=== PATIENT | male | born 1935 | race Caucasian/White ===

== ENCOUNTER 2020-05-28 09:46 | Emergency (ER) | payer MEDICARE ==
[~2020-05-28] VITALS: Ht 170.2 cm; Wt 90.3 kg
[~2020-05-28 09:46] MED LIST: AMLODIPINE BESY10 MG PO; ASPIR-LOW81 MG PO; CARVEDILOL3.125 MG PO; CLONIDINE HCL0.2 MG PO; CLOPIDOGREL75 MG PO; COREG3.125 MG PO; ELIQUIS5 M1 PO; ELIQUIS5 MG PO; ESOMEPRAZOLE MA40 MG PO; FERROUS GLUCON324 M1 PO; FUROSEMIDE40 MG PO; FUROSEMIDE80 MG PO; GLIPIZIDE5 MG PO; HUMIBID LA TAB600 MG PO; IMDUR ER TAB 6060 MG PO; IPRAT-ALBUT 0.5-3 ML INH; LEVAQUIN500 MG PO; MEDROL DOSEPAK 24 MG PO; MIRAPEX0.25 MG PO; NITROSTAT0.4 MG PO; SERTRALINE HCL100 MG PO; ZESTRIL20 MG PO
[2020-05-28 10:50] LABS: HEMOGLOBIN 9.3 gm/dl (14.0-17.5); RED BLOOD COUNT 3.28 M/UL (4.20-5.50); WHITE BLOOD COUNT 13.3 K/UL (4.5-11.0)
[2020-10-03] MEDS ORDERED: OXYCODON-ACETA1 EAC1 PO (13:55)
== END 2020-05-28 13:01 | disposition short-term general hospital (02) ==
LOC: ER1 09:46
PROVIDERS: Physician Assistant
DX: I60.9 Nontraumatic subarachnoid hemorrhage, unspecified (principal); I62.00 Nontraumatic subdural hemorrhage, unspecified; I13.0 Hypertensive heart and chronic kidney disease with heart failure and stage 1 through stage 4 chronic kidney disease, or unspecified chronic kidney disease; E11.22 Type 2 diabetes mellitus with diabetic chronic kidney disease; N18.9 Chronic kidney disease, unspecified; I50.9 Heart failure, unspecified; D64.9 Anemia, unspecified; Z88.0 Allergy status to penicillin; W19.XXXA Unspecified fall, initial encounter; Z91.81 History of falling; Z20.822 Contact with and (suspected) exposure to COVID-19
CPT/HCPCS: 36430; 70450; 71045; 80053; 82550; 82553; 83874; 83880; 84484; 85025; 85610; 85730; 86900; 86901; 87635; 93005; 96374; 96376; 99284; C9132; P9035

== ENCOUNTER 2020-10-01 21:05 | Emergency (ER) | payer MEDICARE ==
[2020-10-01 22:03] LABS: HEMOGLOBIN 11.7 gm/dl (14.0-17.5); RED BLOOD COUNT 4.36 M/UL (4.20-5.50); WHITE BLOOD COUNT 20.3 K/UL (4.5-11.0)
[2020-10-02] MEDS ORDERED: ENDOCET 5-3251 EACH PO (04:15)
[2020-10-03] MEDS ORDERED: OXYCODON-ACETA1 EAC1 PO (13:55)
== END 2020-10-02 04:27 | disposition home or self-care (01) ==
LOC: ER1 21:05
PROVIDERS: Physician Assistant
DX: S22.32XA Fracture of one rib, left side, initial encounter for closed fracture (principal); D72.829 Elevated white blood cell count, unspecified; E11.65 Type 2 diabetes mellitus with hyperglycemia; E78.5 Hyperlipidemia, unspecified; I13.0 Hypertensive heart and chronic kidney disease with heart failure and stage 1 through stage 4 chronic kidney disease, or unspecified chronic kidney disease; I50.9 Heart failure, unspecified; N18.4 Chronic kidney disease, stage 4 (severe); I25.2 Old myocardial infarction; I25.10 Atherosclerotic heart disease of native coronary artery without angina pectoris; E11.22 Type 2 diabetes mellitus with diabetic chronic kidney disease; Z85.46 Personal history of malignant neoplasm of prostate; Z88.0 Allergy status to penicillin; F17.210 Nicotine dependence, cigarettes, uncomplicated; W18.30XA Fall on same level, unspecified, initial encounter
CPT/HCPCS: 71045; 80053; 82550; 82553; 83874; 83880; 84484; 85025; 85610; 85730; 99283

== ENCOUNTER 2020-10-07 10:32 | Emergency (ER) | payer MEDICARE ==
[~2020-10-07 10:32] MED LIST changes: +ENDOCET 5-3251 EACH PO; +OXYCODON-ACETA1 EAC1 PO
[2020-10-07 13:32] LABS: HEMOGLOBIN 10.4 gm/dl (14.0-17.5); RED BLOOD COUNT 3.9 M/UL (4.20-5.50); WHITE BLOOD COUNT 15.4 K/UL (4.5-11.0)
== END 2020-10-07 19:30 | disposition short-term general hospital (02) ==
LOC: ER1 10:32
PROVIDERS: Emergency Medicine
DX: S27.2XXA Traumatic hemopneumothorax, initial encounter (principal); S06.5X0A Traumatic subdural hemorrhage without loss of consciousness, initial encounter; S22.5XXA Flail chest, initial encounter for closed fracture; R79.89 Other specified abnormal findings of blood chemistry; I12.9 Hypertensive chronic kidney disease with stage 1 through stage 4 chronic kidney disease, or unspecified chronic kidney disease; N18.6 End stage renal disease; I50.9 Heart failure, unspecified; E11.22 Type 2 diabetes mellitus with diabetic chronic kidney disease; E87.5 Hyperkalemia; E86.0 Dehydration; Z20.822 Contact with and (suspected) exposure to COVID-19
CPT/HCPCS: 0240U; 31500; 51702; 70450; 71045; 71250; 72125; 80053; 82550; 82553; 83605; 84484; 85025; 87040; 93005; 94002; 96374; 96375; 99285; J0330; J0461; J1265; J1940; J2250; J2405; J2704; J3010; J3370; J7030